=== PATIENT | male | born 1965 | race Hispanic/Latino ===

== ENCOUNTER 2023-12-10 11:27 | Emergency (ER) | payer OTHER ==
[~2023-12-10] VITALS: Ht 175.3 cm; Wt 86.2 kg
[2023-12-10] MEDS ORDERED: DEXAMETHASONE 4 MG TAB PO STA (11:55)
[2023-12-10] MEDS ORDERED: KETOROLAC TROMETHAMINE 30 MG/ML VIAL IM STA (11:55)
[2023-12-10] MEDS ORDERED: NAPROXEN250 MG PO (13:00)
[2023-12-10] MEDS ORDERED: MUCINEX DM ER1 EAC1 PO (13:00)
[2023-12-10 13:02] VITALS: BP 139/90; PULSE 88; RESP 16; O2SAT 100
== END 2023-12-10 13:05 | disposition home or self-care (01) ==
LOC: ER 11:32
DX: R07.81 Pleurodynia (principal); R05.9 Cough, unspecified
CPT/HCPCS: 71101; 99283; J1885; J8540

== ENCOUNTER 2024-11-02 00:20 | Emergency (ER) | payer BC ==
[~2024-11-02] VITALS: Ht 175.3 cm; Wt 97.5 kg
[~2024-11-02 00:20] MED LIST: ACETAMINOPHEN-1 EAC4 PO; IBUPROFEN200 MG PO; MUCINEX DM ER1 EAC1 PO; NAPROXEN250 MG PO
[2024-11-02 00:38] VITALS: TEMP 99
[2024-11-02] MEDS: METHYLPREDNISOLONE SOD SUCC 125 MG/2ML VIAL IM ONE (00:53)
[2024-11-02 01:39] VITALS: PULSE 106; RESP 22; O2SAT 98
[2024-11-02] MEDS: ALBUTEROL SULF 0.083% NEB SOLN 3 ML NEB NEB STA (01:45)
[2024-11-02] MEDS: IPRATROPIUM BROMIDE 0.02% 2.5 ML NEB NEB ONE (01:46)
[2024-11-02 01:57] VITALS: PULSE 113; RESP 20
[2024-11-02] MEDS ORDERED: DOXYCYCLINE HY100 MG PO (02:16)
[2024-11-02] MEDS ORDERED: MEDROL4 M2 PEG (02:16)
[2024-11-02] MEDS ORDERED: VENTOLIN HFA18 GM INH (02:16)
[2024-11-02] MEDS ORDERED: BENZONATATE200 MG PO (02:16)
[2024-11-02 02:25] VITALS: PULSE 124; RESP 24; O2SAT 98
== END 2024-11-02 02:30 | disposition home or self-care (01) ==
LOC: ER 00:26
DX: R50.9 Fever, unspecified (principal); J40 Bronchitis, not specified as acute or chronic; R05.9 Cough, unspecified; E78.5 Hyperlipidemia, unspecified; M19.09 Primary osteoarthritis, other specified site
CPT/HCPCS: 71046; 94640; 94799; 99283; J2919

== ENCOUNTER 2025-05-09 16:33 | Emergency (ER) | payer SELFPAY ==
[~2025-05-09] VITALS: Ht 175.3 cm; Wt 99.8 kg
[~2025-05-09 16:33] MED LIST changes: +BENZONATATE200 MG PO; +DOXYCYCLINE HY100 MG PO; +MEDROL4 M2 PEG; +VENTOLIN HFA18 GM INH
[2025-05-09 16:37] VITALS: TEMP 98.7
[2025-05-09] MEDS: TRAMADOL HCL 50 MG TAB PO ONE (16:47)
[2025-05-09] MEDS: KETOROLAC TROMETHAMINE 10 MG TAB PO STA (17:01)
[2025-05-09] MEDS ORDERED: DEXAMETHASONE4 MG PO (17:25)
[2025-05-09 17:30] VITALS: PULSE 92; RESP 20; O2SAT 95
[2025-05-10] MEDS ORDERED: AMOX TR-K CLV1 EAC2 PO (21:20)
[2025-05-10] MEDS ORDERED: ONDANSETRON ODT4 MG PO (21:20)
[2025-05-10] MEDS ORDERED: ACETAMINOPHEN-1 EAC4 PO (21:20)
== END 2025-05-09 18:03 | disposition home or self-care (01) ==
LOC: ER 16:39
DX: M25.562 Pain in left knee (principal); E78.5 Hyperlipidemia, unspecified; M19.09 Primary osteoarthritis, other specified site
CPT/HCPCS: 99283

== ENCOUNTER 2025-05-10 18:24 | Emergency (ER) | payer SELFPAY ==
[~2025-05-10] VITALS: Ht 175.3 cm; Wt 99.8 kg
[~2025-05-10 18:24] MED LIST changes: +DEXAMETHASONE4 MG PO
[2025-05-10 19:16] VITALS: PULSE 95; RESP 20; TEMP 99.5
[2025-05-10] MEDS: ACETAMINOPHEN 325 MG TAB PO ONE (19:19)
[2025-05-10 19:42] LABS: BASOPHILS # (AUTO) 0.1 (0.0-0.1); BASOPHILS % 0.6 % (0.0-1.0); EOSINOPHILS # (AUTO) 0.3 (0.0-0.4); EOSINOPHILS % 2.4 % (0.0-6.0); HEMATOCRIT 47.2 % (38.2-49.6); HEMOGLOBIN 16.1 g/dL (14.0-18.0); LYMPHOCYTES # (AUTO) 1.9 (1.0-3.2); LYMPHOCYTES % 14.3 % (18.0-39.1); MEAN CORPUSCULAR HEMOGLOBIN 29.4 pg (28-32); MEAN CORPUSCULAR HGB CONC 34.1 g/dL (31-35); MEAN CORPUSCULAR VOLUME 86.1 fL (81-99); MONOCYTES # (AUTO) 0.5 (0.2-0.8); MONOCYTES % 4.1 % (4.4-11.3); NEUTROPHILS # (AUTO) 10.4 (2.1-6.9); NEUTROPHILS % 78.3 % (38.7-80.0); PLATELET COUNT 277 x10e3/uL (140-360); RED BLOOD COUNT 5.48 x10e6/uL (4.3-5.7); RED CELL DISTRIBUTION WIDTH 12.7 % (11.7-14.4)
[2025-05-10 20:05] LABS: ALBUMIN 4.2 g/dL (3.5-5.0); BILIRUBIN,TOTAL 1.1 mg/dL (0.2-1.2); CALCIUM 9.4 mg/dL (8.4-10.2); CREATININE, SERUM 1.22 mg/dL (0.72-1.25); TOTAL PROTEIN 8.3 g/dL (6.5-8.1)
[2025-05-10] MEDS ORDERED: KETOROLAC TROMETHAMINE 30 MG/ML VIAL ONE (20:13)
[2025-05-10] MEDS: KETOROLAC TROMETHAMINE 30 MG/ML VIAL IV STA (20:24)
[2025-05-10] MEDS: LIDOCAINE HCL 1% LOCAL INJ 20 ML VIAL INJ STA (21:02)
[2025-05-10] MEDS: ONDANSETRON HCL INJ 2MG/ML 2ML 2 MG/ML VIAL IV STA (21:08)
[2025-05-10] MEDS: Morphine 4mg INJECTION 4 MG/ML INJ IV ONE (21:08)
[2025-05-10] MEDS ORDERED: Morphine 2mg Syringe 2 MG/ML SYR ONE (21:09)
[2025-05-10] MEDS ORDERED: ONDANSETRON HCL INJ 2MG/ML 2ML 2 MG/ML VIAL ONE (21:10)
[2025-05-10] MEDS ORDERED: ONDANSETRON ODT4 MG PO (21:20)
[2025-05-10] MEDS ORDERED: ACETAMINOPHEN-1 EAC4 PO (21:20)
[2025-05-10] MEDS ORDERED: AMOX TR-K CLV1 EAC2 PO (21:20)
[2025-05-10 21:44] VITALS: BP 125/76; PULSE 77; RESP 20; TEMP 98.6; O2SAT 97
== END 2025-05-10 21:48 | disposition home or self-care (01) ==
LOC: ER 18:28
DX: M25.562 Pain in left knee (principal); M71.562 Other bursitis, not elsewhere classified, left knee; R05.3 Chronic cough; E78.5 Hyperlipidemia, unspecified; M19.09 Primary osteoarthritis, other specified site
CPT/HCPCS: 20610; 36415; 73562; 80053; 83605; 85025; 87040; 99284; J1885; J2270; J2405; J2543